=== PATIENT | male | born 1950 | race Caucasian/White ===

== ENCOUNTER 2017-04-11 09:17 | Day surgery (SDC) | payer BC ==
[2017-04-09 18:49] VITALS: BMI 27.3
[2017-04-11 09:51] VITALS: TEMP 98.6
[2017-04-11] MEDS ORDERED: LIDOCAINE 1% 20 ML VIAL (10MG/ML) FOR IV START INTRADERMA ONE (10:05)
[2017-04-11] MEDS ORDERED: LACTATED RINGERS 1,000 ML IV ONE (10:06)
[2017-04-11] MEDS ORDERED: GLYCOPYRROLATE 0.2 MG/ML 2 ML VIAL ONE (10:10)
[2017-04-11] MEDS ORDERED: ONDANSETRON 4 MG/2 ML VIAL ONE (10:10)
[2017-04-11] MEDS ORDERED: PROPOFOL 10 MG/ML 20 ML VIAL IV ONE (10:10)
[2017-04-11] MEDS ORDERED: MIDAZOLAM 2 MG/2 ML VIAL ONE (10:10)
[2017-04-11] MEDS ORDERED: LIDOCAINE 1% INJ 10MG/ML (20 ML MDV) ONE (10:10)
[2017-04-11] MEDS ORDERED: fentaNYL (PF) 50 MCG/ML 2 ML AMP ONE (10:10)
--- NOTE | 2017-04-11 10:20 | P.GSHP ---
History of Present Illness H&P Date: 04/11/17 Chief Complaint: Abdominal pain Patient seen in the office recently complaining of upper abdominal pain. He points to the mid epigastric region. Seems to be related to eating at times. He was told in the past that he had a hiatal hernia. No rectal bleeding or melena. No vomiting. Past Medical History Past Medical History: Asthma, Coronary Artery Disease (CAD), GERD/Reflux, Hyperlipidemia, Hypertension, Myocardial Infarction ([place]), Osteoarthritis (OA), Skin Disorder Additional Past Medical History / Comment(s): Gastric Ulcer (age 18), Psoriasis , coronary artery disease, Chronic Bronchitis , hiatal hernia, allergies. Last Myocardial Infarction Date:: 12/26/2007 History of Any Multi-Drug Resistant Organisms: None Reported Past Surgical History: Heart Catheterization, Heart Catheterization With Stent, Tonsillectomy Additional Past Surgical History / Comment(s): 2007 stent lad, bronchoscopy, EGD , colonoscopy. cyst removed lt hand Past Anesthesia/Blood Transfusion Reactions: No Reported Reaction Additional Past Anesthesia/Blood Transfusion Reaction / Comment(s): calusterphobia Date of Last Stent Placement:: 2006 Past Psychological History: Anxiety Smoking Status: Never smoker Past Alcohol Use History: Occasional Additional Past Alcohol Use History / Comment(s): states approx 14 drinks per week. SMOKED APPROX 6 YEARS , 1/2 PPD, QUIT 35 YEARS AGO. Past Drug Use History: None Reported - Past Family History Mother Family Medical History: Coronary Artery Disease (CAD), Myocardial Infarction ([place] ) Additional Family Medical History / Comment(s): age 44 massive mi Father Family Medical History: Diabetes Mellitus Additional Family Medical History / Comment(s): pancreatitis Medications and Allergies Home Medications Medication Instructions Recorded Confirmed Type Aspirin 81 mg PO DAILY 09/14/14 04/11/17 History Loratadine [Claritin] 10 mg PO DAILY 09/14/14 04/11/17 History Omeprazole 40 mg PO HS 10/28/15 04/11/17 History ALPRAZolam [Xanax] 0.25 mg PO DAILY 04/09/17 04/11/17 History Albuterol Inhaler [Ventolin Hfa 1 - 2 puff INHALATION Q6HR PRN 04/09/17 History Inhaler] Calcium Carb/Magnesium Ox,Carb 1 tab PO DAILY 04/09/17 04/11/17 History [Benny-Mag 500-250 MG Chewable] Cholecalciferol [Vitamin D3] 2 cap PO DAILY 04/09/17 04/11/17 History Losartan [Cozaar] 50 mg PO HS 04/09/17 04/11/17 History Vitamin B Complex 2 tab PO DAILY 04/09/17 04/11/17 History Allergies Allergy/AdvReac Type Severity Reaction Status Date / Time No Known Allergies Allergy Verified 04/11/17 09:41 Surgical - Exam Vital Signs Pulse BP Pulse Ox 75 136/78 96 04/11/17 09:49 04/11/17 09:49 04/11/17 09:49 Physical exam: General: Well-developed, well-nourished HEENT: Normocephalic, sclerae nonicteric Abdomen: Nontender, nondistended Extremities: No edema Neuro: Alert and oriented Assessment and Plan (1) Abdominal pain Narrative/Plan: Will proceed with upper endoscopy at this time. Status: Acute
--- NOTE | 2017-04-11 10:29 | P.PCN ---
Date of Procedure: 04/11/17 Preoperative Diagnosis: Postoperative Diagnosis: Procedure(s) Performed: Preoperative Dx: Abdominal pain Postoperative Dx: Gastritis, duodenitis, small hiatal hernia Procedure: EGD with Bx Anesthesia: Sedation Endoscopist: Dr. Fontana Specimens: Duodenum, antrum Endoscopic Procedure: The patient was on the endoscopy table in the left decubitus position. The Olympus gastroscope was inserted into the oropharynx and passed under direct visualization to the region of the third portion of the duodenum. From that point the scope was slowly withdrawn inspecting all surfaces carefully. There was mild inflammation in the first portion of the duodenum. A biopsy took place. The pylorus was widely patent. The stomach was carefully inspected. There was a stricture is present as well without ulceration. A biopsy of the antrum took place to rule out H. pylori. Retroflexion revealed a sliding hiatal hernia. The GE junction was present about 1.5 cm above the diaphragmatic hiatus. The esophagus was then carefully examined. There were no neoplastic inflammatory or polypoid lesions throughout the visualized esophagus. The patient was then taken to the recovery room in stable condition per anesthesia guidelines. Recommendations: Add Carafate to the patient's omeprazole. If the patient's symptoms persist consider CT abdomen. Implants: Indications for Procedure: Operative Findings: Description of Procedure:
[2017-04-11 10:32] VITALS: RESP 18
[2017-04-11 11:21] VITALS: BP 117/85; PULSE 70
== END 2017-04-11 11:32 | disposition home or self-care (01) ==
LOC: ORWHC2ENDO 09:17
PROVIDERS: ATTEND Surgery
DX: K29.50 Unspecified chronic gastritis without bleeding (principal); K29.80 Duodenitis without bleeding; K44.9 Diaphragmatic hernia without obstruction or gangrene; K21.9 Gastro-esophageal reflux disease without esophagitis; J45.909 Unspecified asthma, uncomplicated; I25.10 Atherosclerotic heart disease of native coronary artery without angina pectoris; E78.5 Hyperlipidemia, unspecified; I10 Essential (primary) hypertension; M19.90 Unspecified osteoarthritis, unspecified site; F41.9 Anxiety disorder, unspecified; I25.2 Old myocardial infarction; Z79.82 Long term (current) use of aspirin; Z79.899 Other long term (current) drug therapy; Z87.891 Personal history of nicotine dependence; Z95.5 Presence of coronary angioplasty implant and graft; Z82.49 Family history of ischemic heart disease and other diseases of the circulatory system
CPT/HCPCS: 43239; 88305; 88342; J2250; J2405; J2001; J3010; J2704

== ENCOUNTER → 2017-04-20 | Outpatient (CLI) | payer BC ==
--- NOTE | 2017-04-20 14:29 | CT ---
EXAMINATION TYPE: CT abdomen wo/w con DATE OF EXAM: 04/20/2017 COMPARISON: NONE HISTORY: Epigastric pain CT DLP: 1330 mGycm CONTRAST: CT scan of the abdomen is performed without and with with Oral Contrast and with IV Contrast, patient injected with 100 mL of Omnipaque 300. FINDINGS: LUNG BASES-: No visible nodule. No infiltrate. Small sliding-type hiatal hernia. LIVER/GB: No calcified gallstones. No space occupying hepatic lesion. Biliary tree is of normal ca liber. Mild hepatic steatosis. PANCREAS: No inflammation. No distinct mass. SPLEEN: No splenic enlargement. No lesion seen. ADRENALS: No nodule. No thickening. KIDNEYS/BLADDER: No hydronephrosis. No nephrolithiasis. No disctinct renal mass. Urinary bladder g rossly unremarkable. BOWEL: Normal appendix. Normal bowel caliber. Featureless appearance of the ascending colon and prox imal transverse colon may reflect poor distention however inflammatory bowel disease or colitis is di fficult to exclude. Correlate clinically. LYMPH NODES: No greater than 1cm abdominal or pelvic lymph nodes are appreciated. AORTA: No significant abnormality. OSSEOUS STRUCTURES: No significant abnormality is seen. OTHER: No significant additional abnormality is seen. IMPRESSION: 1. Featureless appearance of the ascending colon and proximal transverse colon may reflect poor diste ntion however inflammatory bowel disease or colitis is difficult to exclude. Correlate clinically. 2. Small hiatal hernia. 3. Mild hepatic steatosis.
== END | disposition home or self-care (01) ==
LOC: RADCTMAIN 13:07
PROVIDERS: ATTEND Surgery
DX: K76.0 Fatty (change of) liver, not elsewhere classified (principal); K44.9 Diaphragmatic hernia without obstruction or gangrene
CPT/HCPCS: 74170; Q9967

== ENCOUNTER → 2017-07-31 | Outpatient (CLI) | payer BC ==
--- NOTE | 2017-07-31 15:44 | XR ---
EXAMINATION TYPE: XR chest 2V DATE OF EXAM: 07/31/2017 COMPARISON: Prior chest x-ray 10/29/2015 HISTORY: Cough, R05 TECHNIQUE: Frontal and lateral views of the chest are obtained. FINDINGS: There is no focal air space opacity, pleural effusion, or pneumothorax seen. The cardiac silhouette size is within normal limits. Prominent lung volumes suggest underlying COPD. Apical pleu ral scarring is suspected. The osseous structures are intact. IMPRESSION: No acute cardiopulmonary process.
== END ==
LOC: RADXRMAIN 13:17
PROVIDERS: ATTEND Family Medicine
DX: R05 Cough (principal)
CPT/HCPCS: 71020

== ENCOUNTER → 2017-08-15 | Outpatient (CLI) | payer BC ==
--- NOTE | 2017-08-15 08:59 | US ---
EXAMINATION TYPE: US gallbladder DATE OF EXAM: 08/15/2017 COMPARISON: CT abdomen April 20, 2017 CLINICAL HISTORY: R79.9 Abnormal Labs. no symptoms EXAM MEASUREMENTS: Liver Length: 14.5 cm Gallbladder Wall: 0.2 cm CBD: 0.4 cm Right Kidney: 11.1 x 5.3 x 4.6 cm Pancreas: limited views due to bowel gas Liver: difficult to penetrate, wnl Gallbladder: wnl Evidence for sonographic Estevez's sign: no CBD: wnl Right Kidney: wnl Visualized liver is slightly heterogeneous in appearance without evidence of suspicious intrahepatic mass or ductal dilatation. Pancreas is suboptimally seen on images saved but appeared within normal l imits on recent CT. IMPRESSION: Heterogeneity of liver without worrisome intrahepatic mass or ductal dilatation. Size fel t within normal limits.
== END | disposition home or self-care (01) ==
LOC: RADUSWWP 08:16
PROVIDERS: ATTEND Family Medicine
DX: R79.9 Abnormal finding of blood chemistry, unspecified (principal)
CPT/HCPCS: 76705

== ENCOUNTER 2017-09-10 09:21 | Day surgery (SDC) | payer BC ==
[2017-09-10] MEDS ORDERED: LACTATED RINGERS 1,000 ML IV SCH (09:33)
[2017-09-10] MEDS ORDERED: LIDOCAINE 1% 20 ML VIAL (10MG/ML) FOR IV START INTRADERMA PRN (09:33)
[2017-09-10 10:01] VITALS: RESP 16; TEMP 97.1
[2017-09-10] MEDS ORDERED: LIDOCAINE 1% INJ 10MG/ML (20 ML MDV) ONE (10:58)
[2017-09-10] MEDS ORDERED: PROPOFOL 10 MG/ML 20 ML VIAL IV ONE (10:58)
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
--- NOTE | 2017-09-10 11:20 | P.PCN ---
Date of Procedure: 09/10/17 Procedure(s) Performed: PREOPERATIVE DIAGNOSIS: Colon cancer screening POSTOPERATIVE DIAGNOSIS: Small cecal polyp PROCEDURE: Colonoscopy with snare polypectomy ANESTHESIA: MAC SURGEON: Alonzo Fontana M.D. SPECIMENS: Cecal polyp ENDOSCOPIC PROCEDURE: The patient was placed on the endoscopy table in the left decubitus position. The Olympus colonoscope was inserted into the anus and passed under direct visualization to the base of the cecum. The appendiceal orifice was visualized. From that point the scope was slowly withdrawn inspecting all surfaces carefully. There was a small polyp in the base of the cecum. This was removed using the snare with cautery technique. There were no neoplastic inflammatory or polypoid lesions throughout the ascending, transverse, descending, sigmoid and rectum. There was no diverticulosis noted. Digital rectal examination was normal. The patient was taken to the recovery room in stable condition per anesthesia guidelines. RECOMMENDATIONS: Await biopsy results. Anticipate follow-up colonoscopy 5 years
[2017-09-10 11:38] VITALS: BP 107/68; PULSE 62
== END 2017-09-10 11:54 | disposition home or self-care (01) ==
LOC: ORWHC2ENDO 09:21
PROVIDERS: ATTEND Surgery
DX: Z12.11 Encounter for screening for malignant neoplasm of colon (principal); D12.0 Benign neoplasm of cecum; I25.10 Atherosclerotic heart disease of native coronary artery without angina pectoris; J44.9 Chronic obstructive pulmonary disease, unspecified; K21.9 Gastro-esophageal reflux disease without esophagitis; E78.5 Hyperlipidemia, unspecified; I10 Essential (primary) hypertension; I25.2 Old myocardial infarction; M19.90 Unspecified osteoarthritis, unspecified site; L40.9 Psoriasis, unspecified; Z95.5 Presence of coronary angioplasty implant and graft; F41.9 Anxiety disorder, unspecified; Z87.891 Personal history of nicotine dependence; Z79.2 Long term (current) use of antibiotics; Z79.82 Long term (current) use of aspirin; Z79.899 Other long term (current) drug therapy
CPT/HCPCS: 88305; 45385; J2001; J2704

== ENCOUNTER → 2018-02-11 | Day surgery (SDC) | payer MEDICARE ==
[2018-02-06 12:53] VITALS: BMI 26.9
[~2018-02-11] MED LIST: ACETAMINOPHEN TAB 325 MG TAB PO PRN; ALPRAZolam 0.25 MG TAB PO PRN; ALPRAZolam 0.5 MG TAB PO PRN; ASPIRIN 325 MG TAB PO STA; ATORVASTATIN 80 MG TAB PO STA; HEPARIN SODIUM 1,000 UN/ML (10ML VL) IV ONE; IOHEXOL 350 MG/ML 125ML BOTTLE INJ ONE; LIDOCAINE 2% INJ 20 MG/ML SQ ONE; NITROGLYCERIN SL TABS 0.4 MG TAB SUBLINGUAL PRN; RX INFO: IV CONTRAST WAS GIVEN 1 EACH MISC MISCELLANE PRN; SODIUM CHLORIDE 0.9% 1,000 ML IV SCH; SODIUM CHLORIDE 0.9% 1,000 ML in EMPTY BAG 1 BAG IV ONE; VERAPAMIL SYRINGE (5 MG/10 ML) INTRAARTER ONE
[2018-02-11 08:53] VITALS: RESP 18; TEMP 97.8
[2018-02-11 08:55] LABS: Basophils % (A) 1 %; Eosinophils # (A) 0.3 k/uL (0-0.7); Eosinophils % (A) 5 %; HCT 43.8 % (39.0-53.0); HGB 15.9 gm/dL (13.0-17.5); Lymphocytes % (A) 35 %; MCH 33.9 pg (25.0-35.0); MCHC 36.3 g/dL (31.0-37.0); MCV 93.1 fL (80.0-100.0); Mean Platelet Volume 6.6; Monocytes # (A) 0.4 k/uL (0-1.0); Monocytes % (A) 8 %; Neutrophils # (A) 2.8 k/uL (1.3-7.7); Neutrophils % (A) 50 %; Platelet Count 223 k/uL (150-450); RDW 12.6 % (11.5-15.5); WBC 5.7 k/uL (3.8-10.6)
[2018-02-11 09:09] LABS: Anion Gap 12 mmol/L; Blood Urea Nitrogen 15 mg/dL (9-20); Calcium 10.1 mg/dL (8.4-10.2); Carbon Dioxide 25 mmol/L (22-30); Chloride 105 mmol/L (98-107); Glucose 96 mg/dL (74-99); Potassium 4.4 mmol/L (3.5-5.1); Sodium 142 mmol/L (137-145)
[2018-02-11] MEDS: MIDAZOLAM 2 MG/2 ML VIAL IV ONE ×2 (09:22→09:26)
--- NOTE | 2018-02-11 10:44 | CC ---
CARDIAC CATHETERIZATION REPORT DATE OF SERVICE: 02/11/2018 PERFORMING PHYSICIAN: Zach Teixeira MD, Wool Batting Worker. PROCEDURE PERFORMED: 1. Selective right and left coronary angiogram. 2. Left heart catheterization. INDICATION: This is a pleasant 67-year-old gentleman with known history of coronary artery disease and prior stenting of the LAD continues to have chest discomfort in spite of maximized medical treatment and normal stress test. In view of that, a heart catheterization was recommended. APPROACH: Right radial artery. COMPLICATION: None. LEVEL OF SEDATION: Moderate with sedation length of 11 minutes. PROCEDURE DESCRIPTION: After obtaining an informed consent, the patient was brought to the Cardiac Machine Assembler For Puller Over. The right radial artery was cannulated using micropuncture technique, the micropuncture wire passed easily, then I placed a 6-Arabic sheath in the right radial artery. After that, I did give the patient 2 mg of verapamil IA and 10,000 units of heparin IV. I did after that perform selective right and left coronary angiogram using JR4 and JL3.5 catheter. I did left heart catheterization with a JR4 which flipped into the LV, then I did pullback after I flushed the catheter. The procedure was completed without any complication. SELECTIVE CORONARY ANGIOGRAM: 1. The right coronary artery is a large caliber vessel and it is a dominant vessel. The RCA has mild disease only in the midportion. 2. The left main is angiographically normal. It bifurcates into the left circumflex and left anterior descending artery. 3. The left circumflex is a large caliber vessel. It is a nondominant vessel. The left circumflex has mild disease only as well in the midportion. 4. The left anterior descending artery, the ostial LAD has mild disease only. The mid LAD is stented and the stent has mild in-stent restenosis. The LAD in the proximal to midportion gives rise into a large diagonal branch which seems to have mild disease only. The LAD distal to the stent and distally appeared to be angiographically normal. HEMODYNAMICS: The left ventricular end-diastolic pressure was about 12 mmHg and no gradient was identified across the aortic valve. CONCLUSION: 1. Mild nonobstructive disease involving the mid right coronary artery.. 2. 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 POST-PROCEDURE MANAGEMENT: Maximize medical treatment and follow up with the patient. MMODL / IJN: [id number] /
--- NOTE | 2018-02-11 10:47 | LTR ---
DATE OF SERVICE: February 11, 2018 RE: Jas Kerns Dear Dr. James: Mr. Jas Kerns underwent a heart catheterization and that revealed mild in-stent restenosis involving the mid LAD without any other residual severe coronary artery disease. Maximized medical treatment is recommended at this point of time and no need for any percutaneous revascularization. I want to thank you for allowing me to participate in his care and please do not hesitate to call if you have any question or concern. Sincerely, Zach Teixeira MD [id number] / ALFREDA: [id number] /
[2018-02-11 15:37] VITALS: BP 121/66; PULSE 62
== END ==
LOC: CATHCVL 08:00
PROVIDERS: ATTEND Internal Medicine Interventional Cardiology
DX: I25.110 Atherosclerotic heart disease of native coronary artery with unstable angina pectoris (principal); T82.855A Stenosis of coronary artery stent, initial encounter; I10 Essential (primary) hypertension; Z87.891 Personal history of nicotine dependence; Z79.82 Long term (current) use of aspirin; Z79.51 Long term (current) use of inhaled steroids; Z79.899 Other long term (current) drug therapy; E78.00 Pure hypercholesterolemia, unspecified
CPT/HCPCS: 93458; 80048; 85025; J2001; J2250; J1644; Q9967

== ENCOUNTER → 2018-07-05 | Outpatient (CLI) | payer MEDICARE ==
[2018-07-05 10:36] LABS: PSA Annual Screen 0.87 ng/mL (0.00-4.00)
== END | disposition home or self-care (01) ==
LOC: LABWHC1 09:00
PROVIDERS: ATTEND Internal Medicine Interventional Cardiology
DX: E78.2 Mixed hyperlipidemia (principal)
CPT/HCPCS: 80061; 84450; 84460; 36415; G0103

== ENCOUNTER → 2020-01-06 | Outpatient (CLI) | payer MEDICARE ==
[2020-01-06 12:07] LABS: HGB 15.9 gm/dL (13.0-17.5); MCH 33.3 pg (25.0-35.0); MCHC 34.5 g/dL (31.0-37.0); MCV 96.5 fL (80.0-100.0); Mean Platelet Volume 7.2; Platelet Count 219 k/uL (150-450); RBC 4.77 m/uL (4.30-5.90); RDW 12.4 % (11.5-15.5)
[2020-01-06 16:44] LABS: African American GFR (CKD) 102.1 (60.0-200.0); Albumin 4.5 g/dL (3.80-4.90); Albumin/Globulin Ratio 2.14 (1.60-3.17); Anion Gap 9.2 mmol/L (4.00-12.00); Calcium 10.4 mg/dL (8.7-10.3); Carbon Dioxide 25.8 mmol/L (21.6-31.8); Chol/HDL Ratio 3.44; Globulin 2.1 g/dL (1.6-3.3); LDL Cholesterol,Calculated 122.6 mg/dL (0.0-131.0); Non-African American GFR(CKD) 88.1 (60.0-200.0); Potassium 4.9 mmol/L (3.5-5.5); Total Bilirubin 0.8 mg/dL (0.2-1.2); Total Protein 6.6 g/dL (6.2-8.2); VLDL Calculation 33.4 mg/dL (5.00-40.00)
== END | disposition home or self-care (01) ==
LOC: LABWHC1 11:03
PROVIDERS: ATTEND Family Medicine
DX: E78.5 Hyperlipidemia, unspecified (principal)
CPT/HCPCS: 36415; 80053; 80061; 85027

== ENCOUNTER 2021-03-31 12:41 | Observation (INO) | payer MEDICARE ==
[2021-03-31] MEDS ORDERED: NITROGLYCERIN SL TABS 0.4 MG TAB SUBLINGUAL PRN ×2 (13:23→15:53)
[2021-03-31] MEDS ORDERED: ALPRAZolam 0.25 MG TAB PO PRN (13:23)
[2021-03-31] MEDS ORDERED: ALPRAZolam 0.5 MG TAB PO PRN (13:23)
[2021-03-31] MEDS ORDERED: ASPIRIN 81 MG PO STA (13:30)
[2021-03-31] MEDS ORDERED: NITROGLYCERIN OINT 1 INCH/GM PACKET TOPICAL STA (13:30)
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
--- NOTE | 2021-03-31 14:04 | XR ---
EXAMINATION TYPE: XR chest 2V DATE OF EXAM: 03/31/2021 COMPARISON: 07/31/2017 HISTORY: Shortness of breath TECHNIQUE: Frontal and lateral views of the chest are obtained. FINDINGS: Scattered senescent parenchymal changes noted. Hyperinflation compatible with COPD. No evidence for infiltrate. No evidence for atelectasis. Heart size is stable. Mediastinal structures are stable and grossly unremarkable. No evidence for hilar prominence. Degenerative changes dorsal spine. IMPRESSION: 1. No evidence for acute pulmonary disease.
[2021-03-31 14:05] LABS: Basophils % (A) 1 %; Eosinophils # (A) 0.3 k/uL (0-0.7); Eosinophils % (A) 4 %; HCT 47.7 % (39.0-53.0); HGB 16.5 gm/dL (13.0-17.5); Lymphocytes # (A) 2.2 k/uL (1.0-4.8); Lymphocytes % (A) 36 %; MCH 33.9 pg (25.0-35.0); MCHC 34.7 g/dL (31.0-37.0); MCV 97.8 fL (80.0-100.0); Mean Platelet Volume 7.3; Monocytes # (A) 0.5 k/uL (0-1.0); Monocytes % (A) 8 %; Neutrophils # (A) 3.1 k/uL (1.3-7.7); Neutrophils % (A) 50 %; Platelet Count 195 k/uL (150-450); RBC 4.87 m/uL (4.30-5.90); RDW 12.2 % (11.5-15.5); WBC 6.2 k/uL (3.8-10.6)
[2021-03-31 14:14] LABS: Partial Thromboplastin Time 22.1 sec (22.0-30.0); Prothrombin Time 10.5 sec (9.0-12.0)
[2021-03-31 14:16] LABS: Albumin 4.6 g/dL (3.5-5.0); Calcium 10.9 mg/dL (8.4-10.2); Magnesium 2.1 mg/dL (1.6-2.3); Potassium 4.9 mmol/L (3.5-5.1); Total Bilirubin 0.5 mg/dL (0.2-1.3); Total Protein 7.5 g/dL (6.3-8.2)
[2021-03-31] MEDS ORDERED: HEPARIN SODIUM 1,000 UN/ML (10ML VL) IV ONE ×2 (14:25→23:00)
[2021-03-31] MEDS ORDERED: HEPARIN SOD,PORK IN 0.45% NACL 25,000 UNIT in 0.45% NACL 1 250ML.BAG IV SCH (14:30)
[2021-03-31] MEDS ORDERED: SODIUM CHLORIDE 0.9% 1,000 ML in EMPTY BAG 1 BAG IV ONE (23:00)
[2021-03-31] MEDS: ACETAMINOPHEN TAB 325 MG TAB PO PRN (23:16)
[2021-03-31] MEDS: NITROGLYCERIN OINT 1 INCH/GM PACKET TOPICAL SCH (23:16)
[2021-04-01] MEDS: NITROGLYCERIN OINT 1 INCH/GM PACKET TOPICAL SCH ×4 (00:24→17:30)
[2021-04-01 04:40] LABS: Cholesterol 242 mg/dL (<200); HDL Cholesterol 54 mg/dL (40-60); Triglycerides 438 mg/dL (<150)
[2021-04-01] MEDS: ASPIRIN 325 MG TAB PO SCH (06:07)
[2021-04-01] MEDS ORDERED: ASPIRIN 325 MG TAB PO ONE (07:00)
[2021-04-01] MEDS ORDERED: HEPARIN SODIUM,PORCINE 10,000 UNIT in SODIUM CHLORIDE 0.9% 1,000 ML IRRIGATION PRN (07:00)
[2021-04-01] MEDS ORDERED: HEPARIN SODIUM,PORCINE 2,500 UNIT in SODIUM CHLORIDE 0.9% 250 ML IRRIGATION PRN (07:00)
[2021-04-01] MEDS ORDERED: ATORVASTATIN 80 MG TAB PO ONE (07:00)
[2021-04-01 07:27] LABS: Glucose,Whole Blood 99 mg/dL (75-99)
[2021-04-01] MEDS ORDERED: ALPRAZolam 0.25 MG TAB PO PRN (09:40)
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
[2021-04-01] MEDS ORDERED: LIDOCAINE 1% INJ 10MG/ML (20 ML MDV) ONE (11:56)
[2021-04-01] MEDS ORDERED: VERAPAMIL 2.5 MG/ML 2 ML AMP ONE (11:56)
[2021-04-01] MEDS ORDERED: MIDAZOLAM 2 MG/2 ML VIAL IV ONE (12:42)
[2021-04-01] MEDS ORDERED: IV FLUID CONTINUATION 1,000 ML IV ONE (12:43)
[2021-04-01] MEDS ORDERED: LIDOCAINE 1% INJ 10MG/ML (20 ML MDV) SQ ONE (12:48)
[2021-04-01] MEDS ORDERED: HEPARIN SODIUM 1,000 UN/ML (10ML VL) ONE (12:49)
[2021-04-01] MEDS ORDERED: VERAPAMIL SYRINGE (5 MG/10 ML) INTRAARTER ONE (12:50)
[2021-04-01] MEDS ORDERED: HEPARIN SODIUM 1,000 UN/ML (10ML VL) IV ONE (12:51)
[2021-04-01] MEDS ORDERED: CLOPIDOGREL 75 MG TAB ONE (13:02)
[2021-04-01] MEDS ORDERED: CLOPIDOGREL 75 MG TAB PO ONE (13:08)
[2021-04-01] MEDS ORDERED: fentaNYL (PF) 50 MCG/ML 2 ML AMP ONE (13:09)
[2021-04-01] MEDS ORDERED: IOPAMIDOL-370 100ML BTL INJ ONE ×2 (13:10→13:22)
[2021-04-01] MEDS ORDERED: fentaNYL (PF) 50 MCG/ML 2 ML AMP IV ONE (13:10)
[2021-04-01] MEDS ORDERED: niCARdipine 25 MG/10 ML VIAL ONE (13:14)
[2021-04-01] MEDS ORDERED: NITROGLYCERIN 1000MCG/10ML SYRINGE INTRACORON ONE ×2 (13:15)
[2021-04-01] MEDS ORDERED: ATROPINE SULFATE 0.1 MG/ML 10ML SYRINGE IV PRN (13:36)
[2021-04-01] MEDS ORDERED: MAG HYDROX/AL HYDROX/SIMETH 30 ML CUP PO PRN (13:36)
[2021-04-01] MEDS ORDERED: ZOLPIDEM 5 MG TAB PO PRN (13:36)
[2021-04-01] MEDS ORDERED: NITROGLYCERIN SL TABS 0.4 MG TAB SUBLINGUAL PRN (13:36)
[2021-04-01] MEDS ORDERED: RX INFO: IV CONTRAST WAS GIVEN 1 EACH MISC MISCELLANE PRN (13:36)
[2021-04-01] MEDS ORDERED: SODIUM CHLORIDE 0.9% 1,000 ML IV SCH (13:45)
[2021-04-01 14:14] VITALS: BMI 27.4
[2021-04-01] MEDS: ACETAMINOPHEN TAB 325 MG TAB PO PRN (15:47)
--- NOTE | 2021-04-01 20:20 | CC ---
CARDIAC CATHETERIZATION REPORT DATE OF SERVICE: 04/01/2021 PERFORMING PHYSICIAN: Zach Teixeira M.D. PROCEDURES PERFORMED: 1. Selective right and left coronary angiogram. 2. Left heart catheterization. 3. Successful stenting of the mid left anterior descending artery using a 2.5 x 15 mm Xience drug-eluting stent which was post-dilated using a 2.75 mm NC balloon with an excellent angiographic result and reduction of stenosis from 99% to 0%. INDICATION: This is a 70-year-old gentleman with coronary artery disease and prior stenting of the LAD who was seen in the office recently for followup. He was experiencing for the last few weeks intermittent episodes of chest discomfort concerning for angina. He was having some mild ongoing chest discomfort in the office. Because of that, I advised the patient to come to the hospital and have a heart catheterization. APPROACH: Right radial artery. COMPLICATIONS: None. LEVEL OF SEDATION: Moderate, with sedation length of 40 minutes. PROCEDURE DESCRIPTION: After obtaining informed consent, the patient was brought to the cardiac dentures lab technician. The right radial artery was cannulated using micropuncture technique, and the micropuncture wire passed easily. Then I placed a 6-Thai sheath at the right radial artery. After that I gave the patient 2 mg of verapamil IA and 10,000 units of heparin IV. Selective right and left coronary angiogram was performed using JR4 and JL3.5 catheters. Left heart catheterization was performed using the JR4 catheter, which crossed the aortic valve. Then I did pull back across the valve. The procedure was completed without any complication. After that I did intervene on the LAD; please see separate paragraph for that. SELECTIVE CORONARY ANGIOGRAM: 1. The RCA is a large-caliber vessel. It is a dominant vessel. The RCA in the proximal portion appeared to be angiographically normal. In the mid portion the RCA appeared to have intermediate lesion in the range of 50% to 60%. The RCA distally is normal and bifurcates into PDA and PLV branches. Both appeared to be angiographically normal. 2. The left main is angiographically normal. It bifurcates into left circumflex and left anterior descending artery. 3. The left circumflex is a large-caliber vessel. It is a nondominant vessel. The left circumflex in the proximal portion appeared to be angiographically normal. It gives rise to the first obtuse marginal branch, which is a moderate-caliber vessel with disease in the proximal portion that appeared to be in the range of 60% to 70%. The circumflex in the mid and distal portions appeared to be angiographically normal. 4. The LAD. The proximal LAD appeared to be angiographically normal. The mid LAD is subtotally occluded with a lesion that appeared to be in the range of 99.9%. This is just distal to the bifurcation of the large diagonal branch which appeared to have mild disease only. The LAD distally appeared to be angiographically normal. HEMODYNAMICS: The LVEDP was 10 to 12 mmHg without significant gradient across the aortic valve. CONCLUSION: 1. Intermittent episodes of chest discomfort in this 70-year-old gentleman, and these episodes seem to be concerning for unstable angina. 2. Critical in-stent restenosis involving the mid LAD. 3. Intermediate to severe disease involving the first obtuse marginal branch of the left circumflex. 4. Intermediate to severe disease involving the mid RCA. 5. Normal LV filling pressure. POST-PROCEDURE MANAGEMENT: 1. Dual anti-platelet therapy. 2. Aggressive risk factor modifications. 3. The patient is unfortunately intolerant to statin, but he might benefit from inhibitors. MMODL / IJN: [id number] /
[2021-04-01] MEDS ORDERED: LOSARTAN 50 MG TAB PO SCH (21:00)
[2021-04-01] MEDS ORDERED: PANTOPRAZOLE 40 MG TABLET PO SCH (21:00)
[2021-04-02] MEDS: NITROGLYCERIN OINT 1 INCH/GM PACKET TOPICAL SCH ×2 (00:18→05:55)
[2021-04-02 02:37] VITALS: RESP 16
[2021-04-02 06:39] LABS: African American GFR (CKD) >90 (>60 ml/min/1.73 sqM); Anion Gap 4 mmol/L; Blood Urea Nitrogen 13 mg/dL (9-20); Calcium 9.8 mg/dL (8.4-10.2); Carbon Dioxide 28 mmol/L (22-30); Chloride 107 mmol/L (98-107); Glucose 96 mg/dL (74-99); Non-African American GFR(CKD) 83 (>60 ml/min/1.73 sqM); Potassium 5.4 mmol/L (3.5-5.1); Sodium 139 mmol/L (137-145)
[2021-04-02] MEDS: ASPIRIN 325 MG TAB PO SCH (07:16)
[2021-04-02 08:21] VITALS: BP 128/75; PULSE 59; TEMP 98.2
[2021-04-02 09:00] LABS: Basophils # (A) 0.02 X 10*3/uL (0.00-0.10); Basophils % (A) 0.4 %; Eosinophils # (A) 0.25 X 10*3/uL (0.04-0.35); Eosinophils % (A) 4.4 %; HCT 43.2 % (39.6-50.0); HGB 14.6 g/dL (13.0-17.0); Lymphocytes # (A) 2.13 X 10*3/uL (0.90-5.00); Lymphocytes % (A) 37.3 %; MCH 33.4 pg (27.0-32.0); MCHC 33.8 g/dL (32.0-37.0); MCV 98.9 fL (80.0-97.0); Mean Platelet Volume 9.6 fL (9.5-12.2); Monocytes # (A) 0.64 X 10*3/uL (0.20-1.00); Monocytes % (A) 11.2 %; Neutrophils # (A) 2.66 X 10*3/uL (1.80-7.70); Neutrophils % (A) 46.5 %; Platelet Count 178 X 10*3/uL (140-440); RBC 4.37 X 10*6/uL (4.40-5.60); RDW 12.5 % (11.5-14.5); WBC 5.71 X 10*3/uL (4.50-10.00)
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
--- NOTE | 2021-04-02 11:43 | P.DS ---
Providers Date of admission: 03/31/21 16:01 Expected date of discharge: 04/02/21 Attending physician: Corrie Rice MD Consults: 03/31/21 15:53 Consult Physician Urgent Consulting Provider: Jayesh Griffith Consult Reason/Comments: Unstable angina Do you want consulting provider notified?: Yes 04/01/21 13:36 Consult Physician Routine Consulting Provider: Jayesh Griffith Consult Reason/Comments: Post Interventional patient Do you want consulting provider notified?: Already Contacted Primary care physician: Torres James [facility] Course: 70 years old male patient of Dr. Aguilera and Dr. James with past medical history of coronary artery disease with prior stenting of LAD in 2006, hypertension hyperlipidemia aortic regurgitation comes in with intermittent episodes of chest discomfort for the past few days. Patient noticed pain in the center of the chest even with minimal movement and exertion. Patient noticed when he was putting the boat in the water on Sunday he noticed central substernal chest pain radiating to his left arm. Patient took some deep breath which led to resolve the edition of the symptoms. He had multiple episodes of feeling of spasm in the center of the chest and the back occurring with minimal exertion over the past few days. Patient called to make an appointment with cardiology and was asked to see him in the office. Patient was seen by Dr. Aguilera and was sent to the ER for possible cardiac cath. EKG was negative for ST or T-wave changes. Normal sinus rhythm. Troponin 2 negative. Heparin drip i nitiated. Patient got a dose of aspirin 325 mg. Currently nothing by mouth for possible cardiac cath 04/02: Patient underwent left heart catheterization yesterday from the right radial approach which showed moderate disease of the RCA and obstructive 99% stenosis of the LAD. He underwent successful PCI. He was placed on aspirin and Plavix per cardiology's recommendations. Patient refused to take statin due to statin intolerance, Zetia was ordered. He reports he is feeling well today he'll be discharged home with follow-up with cardiology and his primary care. Discharge diagnoses #1 acute substernal chest pain, unstable angina #2 anxiety #3 history of coronary artery disease with prior stenting of LAD, status post PCI of the LAD on 04/01 #4 history of hiatal hernia The above impression and plan of care have been discussed and directed by signing physician. Anali Hargrove nurse practitioner acting as scribe for signing physician. Plan - Discharge Summary New Discharge Prescriptions: New Nitroglycerin Sl Tabs [Nitrostat] 0.4 mg SUBLINGUAL Q5M PRN #25 tab PRN Reason: Chest Pain Metoprolol Succinate (ER) [Toprol XL] 12.5 mg PO DAILY #30 tab.er.24h Clopidogrel [Plavix] 75 mg PO DAILY #30 tab Ezetimibe [Zetia] 10 mg PO DAILY #30 tab Continue Loratadine [Claritin] 10 mg PO DAILY Aspirin 81 mg PO DAILY Omeprazole 40 mg PO HS Losartan [Cozaar] 50 mg PO HS ALPRAZolam [Xanax] 0.25 mg PO BID PRN PRN Reason: Anxiety Discharge Medication List Aspirin 81 mg PO DAILY 09/14/14 [History] Loratadine [Claritin] 10 mg PO DAILY 09/14/14 [History] Omeprazole 40 mg PO HS 10/28/15 [History] ALPRAZolam [Xanax] 0.25 mg PO BID PRN 04/09/17 [History] Losartan [Cozaar] 50 mg PO HS 04/09/17 [History] Clopidogrel [Plavix] 75 mg PO DAILY #30 tab 04/02/21 [Rx] Ezetimibe [Zetia] 10 mg PO DAILY #30 tab 04/02/21 [Rx] Metoprolol Succinate (ER) [Toprol XL] 12.5 mg PO DAILY #30 tab.er.24h 04/02/21 [Rx] Nitroglycerin Sl Tabs [Nitrostat] 0.4 mg SUBLINGUAL Q5M PRN #25 tab 04/02/21 [Rx] Follow up Appointment(s)/Referral(s): Zach Teixeira MD [STAFF PHYSICIAN] - 1 Week Torres James DO [Primary Care Provider] - 1-2 days Patient Instructions/Handouts: *Surgery [facility] - After Heart Catheterization - [employer] Worker Instructions, After Radial Heart Catheterization (GEN) Discharge Disposition: HOME SELF-CARE
[2021-04-02] MEDS ORDERED: MELATONIN 5 MG TABLET PO SCH (21:00)
[2021-04-03] MEDS ORDERED: METOPROLOL SUCCINATE (ER) 25 MG TAB.ER.24H PO SCH (09:00)
[2021-04-03] MEDS ORDERED: EZETIMIBE 10 MG TAB PO SCH (09:00)
[2021-04-03] MEDS ORDERED: CLOPIDOGREL 75 MG TAB PO SCH (09:00)
== END 2021-04-02 09:49 | disposition home or self-care (01) ==
LOC: CATHCVL 12:41 → 6NMEDSUR 16:01
PROVIDERS: ADMIT Internal Medicine; ATTEND Internal Medicine
DX: I25.110 Atherosclerotic heart disease of native coronary artery with unstable angina pectoris (principal); I35.1 Nonrheumatic aortic (valve) insufficiency; E78.00 Pure hypercholesterolemia, unspecified; I10 Essential (primary) hypertension; E78.5 Hyperlipidemia, unspecified; J44.9 Chronic obstructive pulmonary disease, unspecified; K21.9 Gastro-esophageal reflux disease without esophagitis; L40.9 Psoriasis, unspecified; M19.90 Unspecified osteoarthritis, unspecified site; K44.9 Diaphragmatic hernia without obstruction or gangrene; F40.240 Claustrophobia; F41.9 Anxiety disorder, unspecified; E66.9 Obesity, unspecified; Z68.27 Body mass index [BMI] 27.0-27.9, adult; T46.6X5A Adverse effect of antihyperlipidemic and antiarteriosclerotic drugs, initial encounter; Z20.822 Contact with and (suspected) exposure to COVID-19; Z79.82 Long term (current) use of aspirin; Z79.899 Other long term (current) drug therapy; I25.2 Old myocardial infarction; Z95.5 Presence of coronary angioplasty implant and graft; Z87.01 Personal history of pneumonia (recurrent); Z87.891 Personal history of nicotine dependence; Z87.11 Personal history of peptic ulcer disease; Z87.828 Personal history of other (healed) physical injury and trauma; Z98.890 Other specified postprocedural states; Z82.49 Family history of ischemic heart disease and other diseases of the circulatory system; Z83.3 Family history of diabetes mellitus; Z83.79 Family history of other diseases of the digestive system
CPT/HCPCS: 93005 ×3; 99291; 93458; 83880; 80061; 80053; 80048; 83735; 84484; 85025 ×2; 85610; 85730 ×2; 87635; 71046; G0378 ×3; C9600; C1769; C1887; C1894; C1725 ×3; C1874; J2250; J2001; J3010; J1644 ×3; Q9967

== ENCOUNTER → 2021-06-16 | Outpatient (CLI) | payer MEDICARE ==
[2021-06-16 16:34] LABS: African American GFR (CKD) >90 (>60 ml/min/1.73 sqM); Blood Urea Nitrogen 14 mg/dL (9-20); Non-African American GFR(CKD) 88 (>60 ml/min/1.73 sqM)
--- NOTE | 2021-06-17 08:56 | CT ---
EXAMINATION TYPE: CT brain wo/w con DATE OF EXAM: 06/16/2021 COMPARISON: 01/04/2016 HISTORY: 70-year-old male Headaches and pressure TECHNIQUE: Examination was done in axial plane before and after administration of 100 mL Isovue 300 intravenous contrast. Coronal and sagittal reconstructions performed. CT DLP: 2335.4 mGycm Automated exposure control for dose reduction was used. FINDINGS: There is no evidence of acute intracranial hemorrhage, acute ischemic changes, mass, mass-effect, or extra-axial fluid collection. There is no effacement of cerebral sulci or basal subarachnoid cister ns. There is no hydrocephalus. There is no midline shift. Foley-white matter distinction is preserv ed. There is mild age related cerebral cortical volume loss along the superior convexities. Minimal benig n basal ganglionic calcifications. 2 mm of right-sided cerebellar tonsillar ectopia benign. Dural venous sinuses are patent. No enhancing intracranial lesions. Paranasal sinuses and mastoid air cells well pneumatized. Orbits and globes are intact. IMPRESSION: No acute intracranial abnormality on enhancing intracranial lesions seen.
== END | disposition home or self-care (01) ==
LOC: RADCTMAIN 15:56
PROVIDERS: ATTEND Family Medicine
DX: R51.9 Headache, unspecified (principal)
CPT/HCPCS: 82565; 84520; 70470; 36415; Q9967

== ENCOUNTER → 2021-08-26 | Outpatient (CLI) | payer MEDICARE ==
[2021-08-26 18:00] LABS: Chol/HDL Ratio 1.59 Ratio; LDL Cholesterol,Calculated 26.5 mg/dL (0.0-131.0); Triglycerides 77.4 mg/dL (0.00-149.00); VLDL Calculation 15.48 mg/dL (5.00-40.00)
== END | disposition home or self-care (01) ==
LOC: LABWHC1 10:30
PROVIDERS: ATTEND Nurse Practitioner Adult Health
DX: E78.5 Hyperlipidemia, unspecified (principal)
CPT/HCPCS: 36415; 80061

== ENCOUNTER → 2022-03-17 | Outpatient (CLI) | payer MEDICARE ==
[2022-03-17 14:50] LABS: ALT 65 U/L (10-49); AST 39 U/L (14-35); Chol/HDL Ratio 1.96 Ratio; LDL Cholesterol,Calculated 34.3 mg/dL (0.0-131.0)
== END | disposition home or self-care (01) ==
LOC: LABWHC1 10:32
PROVIDERS: ATTEND Internal Medicine Interventional Cardiology
DX: E78.00 Pure hypercholesterolemia, unspecified (principal)
CPT/HCPCS: 36415; 80061; 84450; 84460

== ENCOUNTER 2023-08-02 08:49 | Day surgery (SDC) | payer MEDICARE ==
[2023-07-31 14:33] VITALS: BMI 27.1
[~2023-08-02 08:49] MED LIST changes: -ACETAMINOPHEN TAB 325 MG TAB PO PRN; -ALPRAZolam 0.25 MG TAB PO PRN; -ALPRAZolam 0.5 MG TAB PO PRN; -ASPIRIN 325 MG TAB PO STA; -ATORVASTATIN 80 MG TAB PO STA; -HEPARIN SODIUM 1,000 UN/ML (10ML VL) IV ONE; -IOHEXOL 350 MG/ML 125ML BOTTLE INJ ONE; +LACTATED RINGERS 1,000 ML IV SCH; -LIDOCAINE 2% INJ 20 MG/ML SQ ONE; -NITROGLYCERIN SL TABS 0.4 MG TAB SUBLINGUAL PRN; -RX INFO: IV CONTRAST WAS GIVEN 1 EACH MISC MISCELLANE PRN; -SODIUM CHLORIDE 0.9% 1,000 ML IV SCH; -SODIUM CHLORIDE 0.9% 1,000 ML in EMPTY BAG 1 BAG IV ONE; -VERAPAMIL SYRINGE (5 MG/10 ML) INTRAARTER ONE
[2023-08-02] MEDS ORDERED: LIDOCAINE 1% (10MG/ML) FOR IV START INTRADERMA ONE (09:19)
[2023-08-02] MEDS ORDERED: LIDOCAINE 2% INJ 20 MG/ML (2 ML VIAL) ONE (09:25)
[2023-08-02] MEDS ORDERED: PROPOFOL 10 MG/ML 20 ML VIAL IV ONE (09:25)
--- NOTE | 2023-08-02 09:36 | P.OP ---
Date of Procedure: 08/02/23 Preoperative Diagnosis: GERD Postoperative Diagnosis: Antral gastritis Hiatal hernia Mild esophagitis Procedure(s) Performed: EGD Anesthesia: MAC Surgeon: Stuart Butt Pathology: other (Antrum, esophagus) Condition: stable Disposition: PACU Description of Procedure: The patient's placed on the endoscopy table in the lateral position. He received IV sedation. The gastro-/oropharynx past esophagus and stomach. Scope placement pylorus. The first and second portion of the duodenum appeared normal . Scope summer back the antrum this appeared mildly inflamed. A biopsies performed. The scope was then retroflexed the remainder of the stomach appeared normal. There was a moderate size hiatal hernia. The GE junction was at 40 cm per the distal esophagus appeared mildly inflamed. A biopsies performed. The proximal esophagus appeared normal. Scope was withdrawn for patient.
[2023-08-02 15:59] VITALS: BP 136/78; PULSE 59; RESP 14; TEMP 96.9
== END 2023-08-02 10:06 | disposition home or self-care (01) ==
LOC: ORWHC2ENDO 08:49
PROVIDERS: ATTEND Surgery
DX: K29.50 Unspecified chronic gastritis without bleeding (principal); K21.00 Gastro-esophageal reflux disease with esophagitis, without bleeding; K44.9 Diaphragmatic hernia without obstruction or gangrene; I25.10 Atherosclerotic heart disease of native coronary artery without angina pectoris; I25.2 Old myocardial infarction; I10 Essential (primary) hypertension; J44.9 Chronic obstructive pulmonary disease, unspecified; Z98.890 Other specified postprocedural states; Z79.899 Other long term (current) drug therapy; Z79.02 Long term (current) use of antithrombotics/antiplatelets
CPT/HCPCS: 88305; 43239; J2704; J2001

== ENCOUNTER 2023-08-22 07:12 | Day surgery (SDC) | payer MEDICARE ==
[2023-08-15 14:50] VITALS: BMI 27.0
[~2023-08-22 07:12] MED LIST changes: +ACETAMINOPHEN TAB 500 MG TAB PO PRN; +DEXAMETHASONE SOD PHOSPHATE 4 MG/ML 1 ML VIAL IV ONE; +HEPARIN SODIUM,PORCINE/PF 5,000 UNIT/0.5 ML SYRINGE SQ PRN; +HYDROmorphone 0.5 MG/0.5 ML SYRINGE IVP PRN; -LACTATED RINGERS 1,000 ML IV SCH
[2023-08-22] MEDS: LACTATED RINGERS 1,000 ML IV SCH ×2 (07:37→09:15)
[2023-08-22] MEDS: ONDANSETRON 4 MG/2 ML VIAL IVP ONE ×2 (07:42→16:28)
[2023-08-22] MEDS ORDERED: MIDAZOLAM 2 MG/2 ML VIAL IVP ONE (08:28)
[2023-08-22] MEDS ORDERED: HYDROmorphone (PF) 1 MG/ML ONE (09:14)
[2023-08-22] MEDS ORDERED: LIDOCAINE 1% INJ 10MG/ML (20 ML MDV) ONE (09:14)
[2023-08-22] MEDS ORDERED: ROCURONIUM 10 MG/ML (5 ML VIAL) IV ONE (09:14)
[2023-08-22] MEDS ORDERED: GLYCOPYRROLATE 0.2 MG/ML 2 ML VIAL ONE (09:14)
[2023-08-22] MEDS ORDERED: DEXAMETHASONE SOD PHOSPHATE 4 MG/ML 1 ML VIAL ONE (09:14)
[2023-08-22] MEDS ORDERED: PROPOFOL 10 MG/ML 20 ML VIAL IV ONE (09:14)
[2023-08-22] MEDS ORDERED: SUCCINYLCHOLINE CHLORIDE 200 MG/10 ML VIAL IV ONE (09:14)
[2023-08-22] MEDS ORDERED: ROPIVACAINE 5 MG/ML 30 ML VIAL ONE (09:14)
[2023-08-22] MEDS ORDERED: NEOSTIGMINE 1 MG/ML 10 ML VIAL ONE (09:14)
[2023-08-22] MEDS ORDERED: ePHEDrine 50 MG/ML 1 ML VIAL ONE (09:14)
[2023-08-22] MEDS ORDERED: PHENYLEPHRINE-0.9% NACL SYG 1,000 MCG/10 ML SYRINGE ONE (09:14)
[2023-08-22] MEDS ORDERED: fentaNYL (PF) 50 MCG/ML 2 ML AMP ONE (09:14)
[2023-08-22] MEDS ORDERED: BUPIVACAINE (PF) 0.25% 30 ML VIAL SQ ONE ×3 (09:31→09:38)
--- NOTE | 2023-08-22 10:34 | P.OP ---
Date of Procedure: 08/22/23 Preoperative Diagnosis: GERD Umbilical hernia Postoperative Diagnosis: GERD Hiatal hernia Umbilical hernia Procedure(s) Performed: Laparoscopic Gwen fundoplication Laparoscopic repair of umbilical hernia Transversus abdominis plane block Anesthesia: HANG Surgeon: Stuart Butt Estimated Blood Loss (ml): 5 Pathology: none sent Condition: stable Disposition: PACU Description of Procedure: The patient was placed on the operating table in the supine position. The p atient received general anesthesia. And was placed in dorsal lithotomy position. The patient was prepped and draped in the usual sterile fashion. The skin incision sites were anesthetized with 1% local Xylocaine. The skin was incised in the left periumbilical area and then using a blade less 5 mm trocar under direct visualization panel cavity was entered. After adequate insufflation the laparoscope was then placed into the peritoneal cavity. Next a 5 mm trochars placed in the right epigastric position. Another 5 millimeter trocar the right lateral position. Another 5 millimeter trocar in the left lateral position a 5 mm trocar is placed in the left epigastric position. And then the initial 5 mm trocar was exchanged for a 10 mm trocar. A four-quadrant transversus abdominis plane block was then performed using 1% local Xylocaine. The left lateral lobe liver was retracted. The hernia was seen. The crural defect was then dissected using the Harmonic scissors device. A 360 crural dissection was performed the esophagus stomach was reduced back into the peritoneal Cavity. The crural defect was then closed using 2-0 Ethibond suture. Next the fundus of the stomach was mobilized using the [place] scissors device. and then a 58-Dutch bougie dilator was placed oropharynx passed into the esophagus and stomach the fundal plication wrap was then performed by grasping the fundus posteriorly and bringing it around the esophagus and stomach fundoplication was then performed using 2-0 Ethibond suture. Care was taken that the fundal location rested over top of the intra-abdominal esophagus. There was no injury seen to the stomach or esophagus. The dilator was then withdrawn. The abdomen was irrigated there is no bleeding seen. Next, an infraumbilical skin incision was made. The umbilical hernia was visualized. Using the Zak Lincoln suture passer the umbilical hernia was repaired using 0 Ethibond suture. The trochars were then withdrawn and then skin incision sites were closed using 3-0 Monocryl suture Steri-Strips are applied. Patient thought procedure well and sent to recovery room in stable condition.
[2023-08-22] MEDS ORDERED: HYDROmorphone 1 MG/ML 1 ML SYRINGE IVP PRN (10:35)
[2023-08-22] MEDS ORDERED: NALOXONE 0.4 MG/ML 1 ML VIAL IV PRN (10:35)
[2023-08-22] MEDS ORDERED: HYDROmorphone 0.5 MG/0.5 ML SYRINGE IVP PRN (10:35)
[2023-08-22] MEDS ORDERED: LACTATED RINGERS 1,000 ML IV ONE (10:35)
[2023-08-22] MEDS ORDERED: ONDANSETRON 4 MG/2 ML VIAL IVP PRN (10:35)
[2023-08-22] MEDS ORDERED: NITROGLYCERIN SL TABS 0.4 MG TAB SUBLINGUAL PRN (14:26)
[2023-08-22] MEDS ORDERED: IBUPROFEN 600 MG TAB PO PRN (16:26)
[2023-08-22] MEDS ORDERED: EZETIMIBE 10 MG TAB PO SCH (21:00)
[2023-08-22] MEDS ORDERED: PANTOPRAZOLE 40 MG TABLET PO SCH (21:00)
[2023-08-22] MEDS ORDERED: LOSARTAN 25 MG TAB PO SCH (21:00)
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
[2023-08-22] MEDS: IBUPROFEN 600 MG TAB PO PRN (22:50)
[2023-08-23] MEDS: LACTATED RINGERS 1,000 ML IV SCH (05:27)
[2023-08-23] MEDS: IBUPROFEN 600 MG TAB PO PRN (08:52)
[2023-08-23] MEDS ORDERED: ASPIRIN 81 MG PO SCH (09:00)
[2023-08-23] MEDS ORDERED: ENOXAPARIN 40 MG/0.4 ML SYRINGE SQ SCH (09:00)
[2023-08-23] MEDS ORDERED: CLOPIDOGREL 75 MG TAB PO SCH (09:00)
[2023-08-23 09:18] VITALS: BP 137/77; PULSE 60; RESP 18; TEMP 97.8
[2023-08-23 11:23] LABS: Basophils # (A) 0.01 X 10*3/uL (0.00-0.10); Basophils % (A) 0.1 %; Eosinophils # (A) 0 X 10*3/uL (0.04-0.35); Eosinophils % (A) 0 %; HCT 41.7 % (39.6-50.0); Lymphocytes # (A) 1.26 X 10*3/uL (0.90-5.00); Lymphocytes % (A) 11.6 %; MCH 33.2 pg (27.0-32.0); MCHC 33.6 d/dL (32.0-37.0); MCV 98.8 FL (80.0-97.0); Mean Platelet Volume 10.1 FL (9.5-12.2); Monocytes # (A) 0.99 X 10*3/uL (0.20-1.00); Monocytes % (A) 9.1 %; NRBC Per 100 WBC 0 X 10*3/uL (0.00-0.01); Neutrophils # (A) 8.59 X 10*3/uL (1.80-7.70); Neutrophils % (A) 78.9 %; Platelet Count 176 X 10*3/uL (140-440); RBC 4.22 X 10*6/uL (4.40-5.60); RDW 12.9 % (11.5-14.5); WBC 10.88 X 10*3/uL (4.50-10.00)
[2023-08-23 11:44] LABS: BUN/Creat Ratio 14.67 Ratio (12.00-20.00); Blood Urea Nitrogen 13.2 mg/dL (9.0-27.0); Calcium 10.1 mg/dL (8.7-10.3); Carbon Dioxide 23.7 mmol/L (21.6-31.8); Chloride 106 mmol/L (96-109); Glucose 117 mg/dL (70-110); Potassium 4.8 mmol/L (3.5-5.5); Sodium 138 mmol/L (135-145)
[2023-08-23] MEDS ORDERED: ALPRAZolam 0.25 MG TAB PO PRN (13:20)
--- NOTE | 2023-08-23 14:40 | P.DS ---
Providers Expected date of discharge: 08/23/23 Attending physician: Stuart Butt Consults: 08/22/23 10:35 Consult Physician Routine Consulting Provider: Yuri Hough Consult Reason/Comments: Medical management Do you want consulting provider notified?: Yes Primary care physician: Torres James Hospital Course: Discharge diagnosis 1. GERD, hiatal hernia, umbilical hernia status post laparoscopic Gwen fundoplication and laparoscopic repair of umbilical hernia Hospital course This is a 72-year-old male with a history of GERD, hiatal hernia and umbilical hernia. He is status post laparoscopic Gwen fundoplication and laparoscopic repair of umbilical hernia. Patient tolerated surgery well. His pain is controlled. He has been up and ambulating. He is tolerating diet. He is afebrile. His incision sites are clean dry and intact. He is stable for discharge. Please refer to chart for further detail. Physician [employer] Operator note has been reviewed by physician. Signing provider agrees with the documented findings, assessment, and plan of care. Patient Condition at Discharge: Stable Plan - Discharge Summary Discharge Rx Participant: No New Discharge Prescriptions: New Acetaminophen Tab [Tylenol] 1,000 mg PO Q6HR PRN #30 tablet PRN Reason: Pain Docusate [Colace] 100 mg PO BID #30 capsule oxyCODONE HCL [OxyIR] 5 mg PO Q6H PRN 2 Days #8 tab PRN Reason: Pain Continue Loratadine [Claritin] 10 mg PO DAILY Aspirin 81 mg PO DAILY Omeprazole 40 mg PO HS ALPRAZolam [Xanax] 0.25 mg PO BID PRN PRN Reason: Anxiety Nitroglycerin Sl Tabs [Nitrostat] 0.4 mg SUBLINGUAL Q5M PRN #25 tab PRN Reason: Chest Pain Clopidogrel [Plavix] 75 mg PO DAILY #30 tab Losartan [Cozaar] 12.5 mg PO HS Ezetimibe [Zetia] 10 mg PO HS Discharge Medication List Aspirin 81 mg PO DAILY 09/14/14 [History] Loratadine [Claritin] 10 mg PO DAILY 09/14/14 [History] Omeprazole 40 mg PO HS 10/28/15 [History] ALPRAZolam [Xanax] 0.25 mg PO BID PRN 04/09/17 [History] Clopidogrel [Plavix] 75 mg PO DAILY #30 tab 04/02/21 [Rx] Nitroglycerin Sl Tabs [Nitrostat] 0.4 mg SUBLINGUAL Q5M PRN #25 tab 04/02/21 [Rx] Ezetimibe [Zetia] 10 mg PO HS 07/31/23 [History] Losartan [Cozaar] 12.5 mg PO HS 07/31/23 [History] Acetaminophen Tab [Tylenol] 1,000 mg PO Q6HR PRN #30 tablet 08/23/23 [Rx] Docusate [Colace] 100 mg PO BID #30 capsule 08/23/23 [Rx] oxyCODONE HCL [OxyIR] 5 mg PO Q6H PRN 2 Days #8 tab 08/23/23 [Rx] Follow up Appointment(s)/Referral(s): Stuart Butt MD [STAFF PHYSICIAN] - 1 Week Patient Instructions/Handouts: *Surgery [facility] - ([facility]) Lap Gwen Fundiplication Post-Op Instructions, GI (Gastrointestinal) Soft Diet (DC) Activity/Diet/Wound Care/Special Instructions: No lifting over 10 pounds Shower daily. No soaking or tub baths for 2 weeks Very light activity until you are reevaluated at your follow up appointment with your surgeon Continue a full liquid diet for 2 weeks No straws or carbonated beverages Discharge Disposition: HOME SELF-CARE
--- NOTE | 2023-08-24 05:50 | P.PN ---
Subjective Progress Note Date: 08/23/23 - Reason for Consult Consult date: 08/22/23 Medical management - Chief Complaint Status post umbilical hernia repair and Gwen fundoplication. - History of Present Illness Patient is a 72-year-old male with a known history of coronary artery disease with prior stent placement, hypertension, hyperlipidemia, history of NC, osteoarthritis, prior history of gastric ulcer, anxiety and prior history of smoking quit several years ago was admitted to hospital for hiatal hernia repair. Patient underwent laparoscopic Gwen fundoplication and laparoscopic repair of umbilical hernia. Postoperative day 0. Postoperatively blood pressure went up to 158/93 pulse 68 and respiration 18 and pulse ox 96% on room air. Patient otherwise denies any complaints of chest pain or shortness of breath. Pain is controlled currently. No fever no chills. No nausea or vomiting abdominal pain or diarrhea. No cough or sputum production. Laboratory data is not available at this time. 08/23/2023 Patient seen and evaluated in follow-up status post umbilical and hiatal hernia repair. Patient is up and walking reports significant gas pain had just started passing gas today. Patient has not had a bowel movement yet. Patient reports urinating with no difficulties. Blood pressure controlled and will continue current regimen. Patient is afebrile with no reports of chest pain or shortness of breath. Patient maintaining current diet and will advance per surgery recommendations Review of systems: Constitutional: No reports of fatigue, fever, or chills Cardiovascular: No reports of chest pain or palpitations Respiratory: No reports of shortness of breath or cough GI: No reports of nausea, vomiting, or diarrhea, reports just started passing gas this morning and having gas pain, no bowel movement yet : No reports of dysuria or retention Neurovascular: No reports of weakness or numbness All medications have been reviewed Physical exam: Patient is sitting up in the chair, appears mildly uncomfortable, awake alert and oriented.. HEENT: Normocephalic. Neck is supple. Pupils reactive. Nostrils clear. Oral c avity is moist. Neck reveals no JVD, carotid bruits, or thyromegaly. CHEST EXAMINATION: Trachea is central. Symmetrical expansion. Bibasilar diminished sounds. No wheezing or rhonchi.. CARDIAC: Normal S1, S2 with no gallops. No murmurs ABDOMEN: Soft. Bowel sounds sluggish. Surgical incisions clean and intact.. Nontender. No organomegaly. No abdominal bruits. Extremities: reveal no edema. No clubbing or cyanosis Neurologically awake, alert, oriented x3 with well-coordinated movements. No focal deficits noted Skin: No rash or skin lesions. Psychiatric: Cooperative. Non-suicidal, Musculoskeletal: No joint swelling or deformity. Normal range of motion. Assessment: Status post laparoscopic Gwen fundoplication and laparoscopic repair of umbilical hernia. Postoperative day 1 Hypertension. Currently controlled Coronary artery disease history of stent placement to LAD x2 in 2020 and 2007 Hyperlipidemia History of NC Hiatal hernia GERD/reflux Anxiety Prior history of smoking DVT prophylaxis. Patient is on Lovenox subcu Plan: Patient will be continued on telemetry monitoring. Continue with pain management, bowel regimen and encourage incentive spirometry. Patient was started on clear liquid diet and advance as tolerated. Patient reports just started passing gas today and continues with significant gas pain including in the upper shoulders. Surgical site pain is controlled at this time home blood pressure medications including losartan have been resumed and blood pressure currently controlled. Continue with aspirin and Plavix once cleared by surgical team. We'll give incentive spirometer and encouraged to use at least 10 times every hour while awake encouraged increased activity as tolerated and frequent walking Patient reports will likely be going home once evaluated by surgery. Patient is medically stable and instructed to follow-up with primary care provider as well. We will continue to follow with general surgery during hospitalization. Thank you kindly for this consultation. The impression and plan of care has been dictated by Margareth Gill, Nurse Practitioner as directed. Dr. Prieto MD I have performed a history and examination and MDM of this patient, discussed the same with the dictator, and agree with the dictator's assessment and plan as written ,documented as a scribe. Based on total visit time, I have performed more than 50% of the visit. Objective - Vital Signs Vital signs: Vital Signs Temp 97.8 F 08/23/23 06:58 Pulse 60 08/23/23 06:58 Resp 18 08/23/23 06:58 BP 137/77 08/23/23 06:58 Pulse Ox 98 08/23/23 06:58 FiO2 Intake & Output 08/22/23 08/23/23 08/23/23 18:59 06:59 18:59 Intake Total 950 Output Total 10 Balance 940 Weight 92 kg Intake: IV 950 Output: Estimated Blood Loss 10 Other: # Voids 1 2 - Labs CBC & Chem 7: 08/23/23 06:31 08/23/23 06:31
== END 2023-08-23 16:38 | disposition home or self-care (01) ==
LOC: OR 07:12 → 4SSUR 10:39 → OR 08-23 16:38
PROVIDERS: ATTEND Surgery
DX: K42.9 Umbilical hernia without obstruction or gangrene (principal); K21.9 Gastro-esophageal reflux disease without esophagitis; K44.9 Diaphragmatic hernia without obstruction or gangrene; I25.10 Atherosclerotic heart disease of native coronary artery without angina pectoris; E78.5 Hyperlipidemia, unspecified; I25.2 Old myocardial infarction; M19.90 Unspecified osteoarthritis, unspecified site; F41.9 Anxiety disorder, unspecified; J45.909 Unspecified asthma, uncomplicated; J18.9 Pneumonia, unspecified organism; F10.90 Alcohol use, unspecified, uncomplicated; Z95.5 Presence of coronary angioplasty implant and graft; Z87.891 Personal history of nicotine dependence; Z79.82 Long term (current) use of aspirin; Z79.02 Long term (current) use of antithrombotics/antiplatelets; Z79.899 Other long term (current) drug therapy
CPT/HCPCS: 64488; 80048; 85025; 49591; 43280; J2250; J1100; J0690; J2405; J1650; J1644; J0665; 86850; 86900; 86901

== ENCOUNTER → 2023-10-16 | Outpatient (CLI) | payer MEDICARE ==
[2023-10-16 18:09] LABS: HCT 45.8 % (39.6-50.0); HGB 15.9 g/dL (13.0-17.0); MCH 33.1 pg (27.0-32.0); MCHC 34.7 g/dL (32.0-37.0); MCV 95.4 FL (80.0-97.0); Mean Platelet Volume 9.6 FL (9.5-12.2); NRBC Per 100 WBC 0 X 10*3/uL (0.00-0.01); Platelet Count 195 X 10*3/uL (140-440); RDW 13.2 % (11.5-14.5); WBC 5.37 X 10*3/uL (4.50-10.00)
[2023-10-16 18:17] LABS: Blood Urea Nitrogen 13.1 mg/dL (9.0-27.0); Chloride 101 mmol/L (96-109); Potassium 4.5 mmol/L (3.5-5.5); Sodium 137 mmol/L (135-145)
== END | disposition home or self-care (01) ==
LOC: LABPAT 13:14
PROVIDERS: ATTEND Internal Medicine Interventional Cardiology
DX: Z01.812 Encounter for preprocedural laboratory examination (principal); R07.9 Chest pain, unspecified
CPT/HCPCS: 80051; 82565; 84520; 85027

== ENCOUNTER 2023-10-18 10:41 | Day surgery (SDC) | payer MEDICARE ==
[~2023-10-18 10:41] MED LIST changes: -ACETAMINOPHEN TAB 500 MG TAB PO PRN; +ALPRAZolam 0.25 MG TAB PO PRN; +ALPRAZolam 0.5 MG TAB PO PRN; +ASPIRIN 325 MG TAB PO STA; +ATORVASTATIN 80 MG TAB PO STA; -DEXAMETHASONE SOD PHOSPHATE 4 MG/ML 1 ML VIAL IV ONE; +HEPARIN SODIUM,PORCINE (1 ML) 2,500 UNIT in SODIUM CHLORIDE 0.9% 250 ML IRRIGATION PRN; +HEPARIN SODIUM,PORCINE 10,000 UNIT in SODIUM CHLORIDE 0.9% 1,000 ML IRRIGATION PRN; -HEPARIN SODIUM,PORCINE/PF 5,000 UNIT/0.5 ML SYRINGE SQ PRN; -HYDROmorphone 0.5 MG/0.5 ML SYRINGE IVP PRN; +NITROGLYCERIN SL TABS 0.4 MG TAB SUBLINGUAL PRN
[2023-10-18] MEDS ORDERED: ASPIRIN 81 MG ONE (11:06)
[2023-10-18] MEDS ORDERED: SODIUM CHLORIDE 0.9% 1,000 ML IV ONE (11:08)
[2023-10-18] MEDS ORDERED: VERAPAMIL 2.5 MG/ML 2 ML AMP ONE (11:48)
[2023-10-18] MEDS ORDERED: LIDOCAINE 1% INJ 10MG/ML (20 ML MDV) ONE (11:48)
[2023-10-18] MEDS ORDERED: HEPARIN SODIUM 1,000 UN/ML (10ML VL) ONE (12:14)
[2023-10-18] MEDS ORDERED: MIDAZOLAM 2 MG/2 ML VIAL IVP ONE (12:31)
[2023-10-18] MEDS ORDERED: LIDOCAINE 1% INJ 10MG/ML (5 ML VIAL-PF) SQ ONE ×2 (12:33)
[2023-10-18] MEDS ORDERED: HEPARIN SODIUM 1,000 UN/ML (10ML VL) IV ONE (12:35)
[2023-10-18] MEDS ORDERED: VERAPAMIL SYRINGE (5 MG/10 ML) INTRAARTER ONE (12:35)
[2023-10-18] MEDS: MIDAZOLAM 2 MG/2 ML VIAL IVP ONE ×2 (12:36→13:16)
[2023-10-18] MEDS ORDERED: ADENOSINE 90 MG in SODIUM CHLORIDE 0.9% 60 ML IVP ONE (12:41)
[2023-10-18] MEDS ORDERED: HYDROmorphone 0.5 MG/0.5 ML SYRINGE IVP ONE (12:41)
[2023-10-18] MEDS ORDERED: CLOPIDOGREL 75 MG TAB PO ONE (13:22)
[2023-10-18] MEDS ORDERED: CLOPIDOGREL 75 MG TAB ONE (13:23)
[2023-10-18] MEDS ORDERED: IOPAMIDOL-370 100ML BTL INJ ONE (13:33)
[2023-10-18] MEDS ORDERED: MAG HYDROX/AL HYDROX/SIMETH 30 ML CUP PO PRN (13:36)
[2023-10-18] MEDS ORDERED: NITROGLYCERIN SL TABS 0.4 MG TAB SUBLINGUAL PRN ×2 (13:36)
[2023-10-18] MEDS ORDERED: ZOLPIDEM 5 MG TAB PO PRN (13:36)
[2023-10-18] MEDS ORDERED: RX INFO: IV CONTRAST WAS GIVEN 1 EACH MISC MISCELLANE PRN (13:36)
[2023-10-18] MEDS ORDERED: ACETAMINOPHEN TAB 500 MG TAB PO PRN (13:36)
[2023-10-18] MEDS ORDERED: ALPRAZolam 0.25 MG TAB PO PRN (13:36)
[2023-10-18] MEDS ORDERED: ATROPINE SULFATE 0.1 MG/ML 10ML SYRINGE IV PRN (13:36)
[2023-10-18] MEDS ORDERED: SODIUM CHLORIDE 0.9% 1,000 ML in EMPTY BAG 1 BAG IV SCH (13:45)
[2023-10-18] MEDS: SODIUM CHLORIDE 0.9% 1,000 ML in EMPTY BAG 1 BAG IV SCH ×3 (14:43→22:11)
[2023-10-18] MEDS ORDERED: EZETIMIBE 10 MG TAB PO SCH (21:00)
[2023-10-18] MEDS ORDERED: LOSARTAN 25 MG TAB PO SCH (21:00)
[2023-10-18] MEDS ORDERED: ATORVASTATIN 80 MG TAB PO SCH (21:00)
[2023-10-18] MEDS ORDERED: PANTOPRAZOLE 40 MG TABLET PO SCH (21:00)
[2023-10-18] MEDS ORDERED: CLOPIDOGREL 75 MG TAB PO SCH (21:00)
[2023-10-19 04:35] VITALS: RESP 16
[2023-10-19 06:16] LABS: African American GFR (CKD) >90 (>60 ml/min/1.73 sqM); Non-African American GFR(CKD) >90 (>60 ml/min/1.73 sqM)
[2023-10-19 07:16] LABS: HCT 40.1 % (39.0-53.0); HGB 13.9 gm/dL (13.0-17.5); MCH 33.7 pg (25.0-35.0); MCHC 34.7 g/dL (31.0-37.0); MCV 97.1 fL (80.0-100.0); Mean Platelet Volume 7.9; Platelet Count 161 k/uL (150-450); RBC 4.13 m/uL (4.30-5.90); RDW 13.2 % (11.5-15.5); WBC 5.9 k/uL (3.8-10.6)
[2023-10-19 08:11] LABS: African American GFR (CKD) >90 (>60 ml/min/1.73 sqM); Anion Gap 10 mmol/L; Blood Urea Nitrogen 12 mg/dL (9-20); Calcium 9.4 mg/dL (8.4-10.2); Carbon Dioxide 22 mmol/L (22-30); Chloride 108 mmol/L (98-107); Glucose 65 mg/dL (74-99); Non-African American GFR(CKD) >90 (>60 ml/min/1.73 sqM); Potassium 4.1 mmol/L (3.5-5.1); Sodium 140 mmol/L (137-145)
--- NOTE | 2023-10-19 08:20 | CC ---
CARDIAC CATHETERIZATION REPORT PERFORMING PHYSICIAN: Zach Teixeira MD. PROCEDURES PERFORMED: 1. Selective right and left coronary angiogram. 2. Left heart catheterization. 3. Successful stenting of the mid right coronary artery using 4.5 x 23 mm Xience RADHA with an excellent angiographic results with adjunctive use of Doppler wire and cardiac imaging. 4. Ultrasound-guided access of the right radial artery. INDICATIONS: This is a pleasant 72-year-old gentleman with coronary artery disease and prior stenting of the LAD who was seen in the office recently with chest discomfort with exertion concerning for angina. APPROACH: Right radial artery. COMPLICATIONS: None. LEVEL OF SEDATION: Moderate, with sedation length of 66 minutes. PROCEDURE DESCRIPTION: After obtaining an informed consent, the patient was brought to the cardiac bundle tier and labeler. The right radial artery was cannulated using micropuncture technique and a micropuncture wire passed easily. Then I placed a 6-Upper Sorbian sheath at the right radial artery. Please note that accessing the right radial artery was performed using ultrasound guidance. Subsequently, I did start anticoagulation using heparin and the patient was given a total of 5000 units of heparin IV. Continuous ACT monitoring was performed throughout the procedure. Selective right and left coronary angiogram performed with JR4 and JL3.5 catheters. Left heart catheterization was performed using the JR4 catheter which crossed the aortic valve. After that I did intervene on the right coronary artery. Selective coronary angiogram. 1. The RCA is a large-caliber vessel and a dominant vessel. The RCA has tubular lesion in the mid portion, appeared to be in the range of 60%. The lesion confirmed to be flow-limiting by Doppler wire. 2. The left main is a large-caliber vessel with mild disease only. It bifurcates into an LCX and LAD. 3. The LCX is a large caliber vessel, nondominant vessel, appeared to have mild disease only and gives rise into the first and second obtuse marginal branches, both appeared to be angiographically normal. 4. The LAD is a large-caliber vessel. The LAD is stented in the mid portion and the stent is patent. The LAD gives rise into a diagonal branch which appeared to have mild disease only. HEMODYNAMICS: The LVEDP was 6 mmHg with no significant gradient across the aortic valve. FFR and PCI of the RCA. Anticoagulation was initiated using heparin with continuous ACT monitoring. I did engage the RCA using JR4 guiding catheter. PCI of the RCA anticoagulation was initiated using heparin with continuous ACT monitoring. Subsequently, I decided to pursue with FFR of the RCA. Anticoagulation was continued using heparin. After zeroing the Doppler wire and equalizing between the Doppler wire and the guiding catheter, I did engage the RCA and wired it using a Doppler wire. I did initiate an IFR and that came to be at borderline at 0.90, but subsequently I performed an FFR and that came to be ischemic at 0.80. At that point, I did intravascular ultrasound of the RCA that showed diameter around 4.5 mm. Attempting advancing 3.5 x 15 mm noncompliant balloon was successful in spite of using meigdio wire with run-through and Doppler wire. Also advancing the balloon was unsuccessful in spite of using GuideLiner. At that point, I pulled the GuideLiner out and I wired the RCA using an Ironman. The Ironman was used as a emigdio wire and run-through was used as a working wire. Advancing the balloon was successful over the run-through and balloon angioplasty was performed using 3.5 mm noncompliant balloon. After that, I advanced 4.5 x 18 mm stent where the stent was positioned under fluoroscopic guidance and deployed under 12 atmospheres. Intravascular ultrasound was performed and showed that the mid portion of the stent was not well expanded, so I decided to post dilate and that was performed using 4.5 mm noncompliant balloon. Final angiogram was performed and showed excellent results and the procedure was completed with no complication. CONCLUSION: 1. Patent stent in the mid LAD. Mild disease involving the LAD distal to the stented segment. 2. Intermediate lesion involving the mid RCA documented to be flow-limiting by Doppler wire. I did perform successful PCI of the RCA as described above. 3. Mild disease involving the left main coronary artery. 4. Normal left-sided filling pressure. POSTPROCEDURE MANAGEMENT: 1. Dual anti-platelet therapy using aspirin and Plavix for at least 6 months. 2. Aggressive cholesterol control. 3. Risk factor modifications. 4. Follow up with the patient. MMODL / IJN: [id number] /
[2023-10-19 08:59] VITALS: BP 107/61; PULSE 52; TEMP 98
[2023-10-19] MEDS ORDERED: ISOSORBIDE MONONITRATE ER 30 MG TAB.ER.24H PO SCH (09:00)
[2023-10-19] MEDS ORDERED: LORATADINE 10 MG TAB PO SCH (09:00)
[2023-10-19] MEDS ORDERED: ASPIRIN 81 MG PO SCH (09:00)
[2023-10-19 12:39] VITALS: BMI 25.6
--- NOTE | 2023-10-19 12:50 | P.DS ---
Providers Attending physician: Zach Teixeira Consults: 10/18/23 13:37 Consult Physician Routine Consulting Provider: [facility] Consult Reason/Comments: Post Interventional patient Do you want consulting provider notified?: Already Contacted Primary care physician: [facility] Course: The patient is a pleasant 72-year-old gentleman who underwent yesterday successful stenting of the right coronary artery. He was seen and evaluated this morning. He is asymptomatic at this point. He his hemodynamic is stable. The patient is going to be discharged home on dual antiplatelet therapy and he is intolerant to statin. I will follow-up with the patient next week in the office Plan - Discharge Summary Discharge Rx Participant: No New Discharge Prescriptions: Continue Loratadine [Claritin] 10 mg PO QAM Aspirin 81 mg PO QAM Omeprazole 40 mg PO HS ALPRAZolam [Xanax] 0.25 mg PO BID PRN PRN Reason: Anxiety Nitroglycerin Sl Tabs [Nitrostat] 0.4 mg SUBLINGUAL Q5M PRN #25 tab PRN Reason: Chest Pain Acetaminophen Tab [Tylenol] 1,000 mg PO Q6HR PRN #30 tablet PRN Reason: Pain Losartan [Cozaar] 12.5 mg PO HS Ezetimibe [Zetia] 10 mg PO HS Ibuprofen [Motrin Ib] 400 mg PO Q6H PRN PRN Reason: Pain Clopidogrel [Plavix] 75 mg PO HS Discontinued Isosorbide Mononitrate [Isosorbide Mononitrate ER] 30 mg PO QAM Discharge Medication List Aspirin 81 mg PO QAM 09/14/14 [History] Loratadine [Claritin] 10 mg PO QAM 09/14/14 [History] Omeprazole 40 mg PO HS 10/28/15 [History] ALPRAZolam [Xanax] 0.25 mg PO BID PRN 04/09/17 [History] Nitroglycerin Sl Tabs [Nitrostat] 0.4 mg SUBLINGUAL Q5M PRN #25 tab 04/02/21 [Rx] Ezetimibe [Zetia] 10 mg PO HS 07/31/23 [History] Losartan [Cozaar] 12.5 mg PO HS 07/31/23 [History] Acetaminophen Tab [Tylenol] 1,000 mg PO Q6HR PRN #30 tablet 08/23/23 [Rx] Clopidogrel [Plavix] 75 mg PO HS 10/10/23 [History] Ibuprofen [Motrin Ib] 400 mg PO Q6H PRN 10/10/23 [History] Follow up Appointment(s)/Referral(s): Zach Teixeira MD [STAFF PHYSICIAN] - 1 Week (Per Sheyla, the office will call wit h a follow up appointment. ) Patient Instructions/Handouts: Moderate Sedation (DC), After Radial Heart Catheterization (GEN) Activity/Diet/Wound Care/Special Instructions: No driving for two days Ok to shower tomorrow but no baths, pools, lakes, doing dishes by hand for five days. Signs of infection IE: fever, rash, drainage from puncture site, swelling go to ER/doctor for immediate evaluation. Avoid using right wrist/hand to bend, flex, lift greater than 5 lbs for five days. For Heavy Bleeding of puncture site apply firm direct pressure and return to ER. Do not attempt to drive self. low sodium/low fat diet medications as directed by Cardiologists
== END 2023-10-19 14:35 | disposition home or self-care (01) ==
LOC: CATHCVL 10:41 → 6NMEDSUR 13:30 → CATHCVL 10-19 14:35
PROVIDERS: ATTEND Internal Medicine Interventional Cardiology
DX: I08.0 Rheumatic disorders of both mitral and aortic valves (principal); I25.10 Atherosclerotic heart disease of native coronary artery without angina pectoris; I10 Essential (primary) hypertension; E78.5 Hyperlipidemia, unspecified; Z79.51 Long term (current) use of inhaled steroids; Z79.82 Long term (current) use of aspirin; Z79.899 Other long term (current) drug therapy
CPT/HCPCS: 93571; 92978; 93458; 80048; 82565; 85027; 99152; 99153 ×3; C9600; C1769 ×4; C1887 ×3; C1894; C1753; C1874; C1725 ×2; J2250; J2001; J1644; J0153; J1170; Q9967

== ENCOUNTER → 2024-03-18 | Outpatient (CLI) | payer MEDICARE ==
[2024-03-18 15:29] LABS: ALT 34 U/L (10-49); AST 27 U/L (14-35); Chol/HDL Ratio 3.09 Ratio; LDL Cholesterol,Calculated 93.7 mg/dL (0.0-131.0)
== END | disposition home or self-care (01) ==
LOC: LABWHC1 09:52
PROVIDERS: ATTEND Internal Medicine Interventional Cardiology
DX: E78.2 Mixed hyperlipidemia (principal)
CPT/HCPCS: 36415; 80061; 84450; 84460

== ENCOUNTER → 2024-04-09 | Outpatient (CLI) | payer MEDICARE ==
--- NOTE | 2024-04-09 12:40 | XR ---
EXAMINATION TYPE: XR chest 2V DATE OF EXAM: 04/09/2024 12:00 PM CLINICAL INDICATION:Male, 73 years old with history of J42 UNSPECIFIED CHRONIC BRONCHITIS; [facility] COMPARISON: Chest radiographs from 03/31/2021 TECHNIQUE: XR chest 2V Frontal and lateral views of the chest. FINDINGS: Lungs/Pleura: There is flattening of the diaphragm with increased lucency of the lungs. No evidence o f pneumothorax, pleural effusion or focal consolidation. Pulmonary vascularity: Unremarkable. Heart/mediastinum: Cardiomediastinal silhouette is unremarkable. Musculoskeletal: No acute osseous pathology. IMPRESSION: 1. No acute cardiopulmonary disease process. 2. COPD changes.
== END | disposition home or self-care (01) ==
LOC: RADXRMAIN 11:03
PROVIDERS: ATTEND Family Medicine
DX: J44.89 Other specified chronic obstructive pulmonary disease (principal)
CPT/HCPCS: 71046